=== PATIENT | female | born 1980 | race Caucasian/White ===

== ENCOUNTER → 2016-11-18 | Outpatient (CLI) | payer OTHER ==
[~2016-11-18] MED LIST: ZOFR4TAB3 SL
--- NOTE | 2016-11-18 10:38 | RADRPT ---
EXAM DATE/TIME: 11/18/2016 09:25 [place] COMPARISON: No previous studies available for comparison. INDICATIONS : Irregular menstral cycle with pelvic cramps. Examination is limited by the patient's body habitus. MEDICAL HISTORY : Abnormal bleeding. Pelvic pains. SURGICAL HISTORY : section. ENCOUNTER: Initial ACUITY: > 1 year PAIN SCORE: 0/10 LOCATION: Bilateral pelvis MEASUREMENTS: TRANSABDOMINAL: LEFT OVARY: 2.9 x 2.8 x 1.8 TRANSVAGINAL: UTERUS: 12.5 x 4.9 x 3.4 cm ENDOMETRIAL STRIPE: 11 mm RIGHT OVARY: Non visualized FINDINGS: UTERUS: The uterus is difficult to visualize and patient's body habitus. Apparent nabothian cysts are eviden t. RIGHT OVARY: Not visualized. LEFT OVARY: Poorly visualized but no obvious mass. MISCELLANEOUS: No free fluid. CONCLUSION: Limited exam because of body habitus. I do not see obvious fibroids. Chaka Mejía MD FACR on November 18, 2016 at 10:34 Board Certified Radiologist. This report was verified electronically.
== END ==
LOC: HRAD 09:14
PROVIDERS: ATTEND Family Medicine
DX: N93.8 Other specified abnormal uterine and vaginal bleeding (principal); N92.4 Excessive bleeding in the premenopausal period; N92.0 Excessive and frequent menstruation with regular cycle
CPT/HCPCS: 76830; 76856